=== PATIENT | female | born 1960 | race Caucasian/White ===

== ENCOUNTER 2018-03-24 09:11 | Outpatient (CLI) | payer BC ==
--- NOTE | 2018-03-24 10:04 | RAD ---
TWO VIEWS CHEST: Date: 03-24-18 Comparison: 03-08-16 History: Bronchitis. COPD. FINDINGS: Mild diffuse increased linear interstitial density noted. Mild pulmonary hyperinflation noted as well . The findings are consistent with the provided history of COPD. There is no pneumothorax, pleural fl uid, focal consolidation, or alveolar edema. IMPRESSION: Chronic appearing findings as detailed above. No focal consolidation or alveolar edema. POS: [facility]
== END 2018-03-24 09:12 | disposition home or self-care (01) ==
LOC: BICRAD 09:11
PROVIDERS: ATTEND Family Medicine
DX: J40 Bronchitis, not specified as acute or chronic (principal)
CPT/HCPCS: 71046

== ENCOUNTER 2018-08-16 12:57 | Outpatient (CLI) | payer BC ==
--- NOTE | 2018-08-16 13:14 | RAD ---
2 views chest. HISTORY: Dyspnea. PA and lateral views of the chest obtained. The lungs are well aerated. No evidence of active intrathoracic disease seen. No evidence of effusion s, pneumonia or pneumothorax seen. IMPRESSION: unremarkable 2 views chest.
== END 2018-08-16 12:58 | disposition home or self-care (01) ==
LOC: RAD 12:57
PROVIDERS: ATTEND Internal Medicine Pulmonary Disease
DX: R06.00 Dyspnea, unspecified (principal)
CPT/HCPCS: 71046

== ENCOUNTER 2024-10-11 10:01 | Outpatient (CLI) | payer MEDICARE, BC | END 2024-10-11 10:02 | disposition home or self-care (01) | LOC: BICCT 10:01 | PROVIDERS: ATTEND Internal Medicine Critical Care Medicine | DX: J44.9 Chronic obstructive pulmonary disease, unspecified (principal); R91.8 Other nonspecific abnormal finding of lung field | CPT/HCPCS: 71250 ==

== ENCOUNTER 2025-02-06 10:48 | Outpatient (CLI) | payer MEDICARE, BC | END 2025-02-06 10:49 | disposition home or self-care (01) | LOC: RAD 10:48 | PROVIDERS: ATTEND Internal Medicine Critical Care Medicine | DX: R06.00 Dyspnea, unspecified (principal) | CPT/HCPCS: 71046 ==